=== PATIENT | female | born 1970 | race African-American/Black ===

== ENCOUNTER 2019-01-07 13:05 | Emergency (ER) | payer OTHER ==
[~2019-01-07] VITALS: Ht 160 cm; Wt 77.1 kg
== END 2019-01-07 14:40 | disposition home or self-care (01) ==
LOC: ER 13:05
DX: S01.81XA Laceration without foreign body of other part of head, initial encounter (principal); W18.09XA Striking against other object with subsequent fall, initial encounter; Y93.89 Activity, other specified; Y92.488 Other paved roadways as the place of occurrence of the external cause; Y99.8 Other external cause status